=== PATIENT | female | born 1975 | race Two or more races ===

== ENCOUNTER 2017-12-01 08:59 | Emergency (ER) | payer SELFPAY ==
[~2017-12-01] VITALS: Ht 157.5 cm; Wt 61.2 kg
--- NOTE | 2017-12-01 09:40 | NUR ---
PATIENT TO ED DT ABD PAIN, 04/19 W/ DIARRHEA X FRIDAY. PATIENT IS AAO4. APPEARS IN NO APPARENT DISTRESS, RESPIRATION EVEN AND UNLABORED,. SKIN IS WARM TO TOUCH AND NON DIAPHORETIC. AFEBRILE. VSS. PENDING MD EVALUATION
[2017-12-01] MEDS ORDERED: IV NS 0.9% 1,000 ML BAG IV ONE (10:00)
[2017-12-01 10:10] LABS: BASOPHILS # (AUTO) 0.1 /CMM (0.0-0.2); BASOPHILS % (AUTO) 2.8 % (0.0-2.0); EOSINOPHILS # (AUTO) 0.1 /CMM (0.0-0.7); EOSINOPHILS % (AUTO) 1.5 % (0.0-6.0); HEMATOCRIT 37 % (33-45); HEMOGLOBIN 12.4 g/dL (11.5-14.8); LYMPHOCYTES # (AUTO) 1.9 /CMM (0.8-4.8); LYMPHOCYTES % (AUTO) 41.2 % (20.0-44.0); MEAN CORPUSCULAR HEMOGLOBIN 29 PG (26.0-33.0); MEAN CORPUSCULAR HGB CONC 34 g/dl (31.0-36.0); MEAN CORPUSCULAR VOLUME 85 fL (82-100); MONOCYTES # (AUTO) 0.4 /CMM (0.1-1.30); MONOCYTES % (AUTO) 8.4 % (2.0-12.0); NEUTROPHILS # (AUTO) 2.1 /CMM (1.8-8.9); NEUTROPHILS % (AUTO) 46.1 % (43.0-81.0); PLATELET COUNT (AUTO) 333 /CMM (150-450); RDW COEFFICIENT OF VARIATION 15.2 (11.5-15.0); RED BLOOD CELL COUNT(AUTO) 4.31 MIL/uL (4.0-5.2); WHITE BLOOD COUNT (AUTO) 4.6 K/uL (4.3-11.0)
[2017-12-01 10:33] LABS: CALCIUM, SERUM 8.1 mg/dL (8.5-10.1); CREATININE 0.6 mg/dL (0.6-1.3); POTASSIUM 3.9 mmol/L (3.5-5.1)
[2017-12-01 10:39] LABS: ALBUMIN 3.2 g/dL (3.4-5.0); BILIRUBIN,TOTAL 0.2 mg/dL (0.2-1.0); TOTAL PROTEIN, SERUM 7.3 g/dL (6.4-8.2)
--- NOTE | 2017-12-01 11:40 | NUR ---
IV removed. Catheter intact and site benign. Pressure and 4x4 applied to site. No bleeding noted.
--- NOTE | 2017-12-01 11:45 | NUR ---
Patient discharged to home in stable condition. Written and verbal after care instructions given. Patient verbalizes understanding of instruction.
[2017-12-01 12:06] VITALS: BP 108/79
== END 2017-12-01 12:08 | disposition home or self-care (01) ==
LOC: ER 09:01
DX: R10.84 Generalized abdominal pain (principal); R19.7 Diarrhea, unspecified
CPT/HCPCS: 36415; 80048; 80076; 83690; 85025; 96360; 99284; A4606; J7030; Z7610

== ENCOUNTER 2018-05-05 17:12 | Emergency (ER) | payer MEDICAID ==
[~2018-05-05] VITALS: Ht 170.2 cm; Wt 83.9 kg
[2018-05-05 17:16] VITALS: BP 100/63
== END 2018-05-05 17:58 | disposition home or self-care (01) ==
LOC: ER 17:20
DX: R21 Rash and other nonspecific skin eruption (principal)
CPT/HCPCS: 99283; A4606; Z7610

== ENCOUNTER 2018-11-30 08:44 | Emergency (ER) | payer MEDICAID ==
[~2018-11-30] VITALS: Ht 160 cm; Wt 82.1 kg
[2018-11-30 08:52] VITALS: BP 117/80
--- NOTE | 2018-11-30 09:03 | NUR ---
Patient discharged to home in stable condition. Written and verbal after care instructions given. Patient verbalizes understanding of instruction.
== END 2018-11-30 09:03 | disposition home or self-care (01) ==
LOC: ER 08:45
DX: J06.9 Acute upper respiratory infection, unspecified (principal); F10.10 Alcohol abuse, uncomplicated; Y90.9 Presence of alcohol in blood, level not specified; Z98.890 Other specified postprocedural states
CPT/HCPCS: Z7502

== ENCOUNTER 2019-01-17 11:32 | Emergency (ER) | payer MEDICAID ==
[~2019-01-17] VITALS: Ht 157.5 cm; Wt 77.1 kg
--- NOTE | 2019-01-17 11:40 | NUR ---
PT BIB SELF C/O URI SYMPTOMS, PT IS AAOX4 GERMAN SPEAKING ONLY, NOT IN RESPIRATORY DISTRESS, V/S STABLE, KEPT RESTED AND COMFORTABLE.
--- NOTE | 2019-01-17 12:15 | NUR ---
SEEN AND EXAMINED BY DR. JIMENEZ.
[2019-01-17] MEDS ORDERED: IPRATROPIUM NEB FS 0.5 MG/2.5 ML AMPUL.NEB NEB ONE (12:30)
[2019-01-17] MEDS ORDERED: ALBUTEROL FS 2.5 MG/3 ML VIAL.NEB NEB ONE (12:30)
[2019-01-17] MEDS ORDERED: GUAIFENESIN/D-METHORPHAN HB 5 ML UDC PO ONE (12:30)
--- NOTE | 2019-01-17 12:30 | NUR ---
RAPID INFLUENZA OBTAINED AND SENT TO LAB.
[2019-01-17] MEDS ORDERED: IPRATROPIUM NEB FS 0.5 MG/2.5 ML AMPUL.NEB ONE (12:45)
[2019-01-17] MEDS ORDERED: ALBUTEROL FS 2.5 MG/3 ML VIAL.NEB ONE (12:45)
--- NOTE | 2019-01-17 12:45 | NUR ---
RT AT BEDSIDE FOR BREATHING TREATMENT.
[2019-01-17] MEDS ORDERED: GUAIFENESIN/CODEINE 10 ML UDC ONE (12:52)
--- NOTE | 2019-01-17 13:05 | NUR ---
TITLE ATTORNEY AT BEDSIDE FOR XRAY.
--- NOTE | 2019-01-17 13:05 | NUR ---
Manjit reyes in [facility] - 01/17/19 at 1305 by KIT ICHTHYOLOGY TEACHER AT [facility] FOR EVAL.
[2019-01-17 13:48] VITALS: BP 118/71
--- NOTE | 2019-01-17 13:49 | NUR ---
Patient discharged to home in stable condition. Written and verbal after care instructions given. Patient verbalizes understanding of instruction.
== END 2019-01-17 13:50 | disposition home or self-care (01) ==
LOC: ER 11:35
DX: J20.9 Acute bronchitis, unspecified (principal); J06.9 Acute upper respiratory infection, unspecified; F10.10 Alcohol abuse, uncomplicated; Y90.9 Presence of alcohol in blood, level not specified; Z98.890 Other specified postprocedural states
CPT/HCPCS: 71045-TC; 87400

== ENCOUNTER 2019-06-02 09:11 | Emergency (ER) | payer MEDICAID ==
[~2019-06-02] VITALS: Ht 157.5 cm; Wt 81.7 kg
[2019-06-02 09:18] VITALS: BP 118/79
--- NOTE | 2019-06-02 09:18 | NUR ---
PT BIB SELF C/O "headache with dizziness started yesterday around 12 noon", -N/V PT IS AAOX4, NOT IN RESPIRATORY DISTRESS, V/S STABLE, KEPT RESTED AND COMFORTABLE, WILL CONTINUE TO MONITOR.
--- NOTE | 2019-06-02 09:53 | NUR ---
Patient discharged to home in stable condition. Written and verbal after care instructions given. Patient verbalizes understanding of instruction.
== END 2019-06-02 09:57 | disposition home or self-care (01) ==
LOC: ER 09:11
DX: G44.209 Tension-type headache, unspecified, not intractable (principal); F10.10 Alcohol abuse, uncomplicated; Y90.9 Presence of alcohol in blood, level not specified; Z98.890 Other specified postprocedural states

== ENCOUNTER 2019-09-01 15:52 | Emergency (ER) | payer MEDICAID ==
[~2019-09-01] VITALS: Ht 160 cm; Wt 82.6 kg
[2019-09-01] MEDS ORDERED: DEXAMETHASONE SOD PHOSPHATE 4 MG/ML VIAL IM ONE (16:30)
[2019-09-01] MEDS ORDERED: KETOROLAC TROMETHAMINE INJ 60 MG/2 ML VIAL IM ONE ×2 (16:30→16:33)
[2019-09-01] MEDS ORDERED: KETOROLAC TROMETHAMINE INJ 30 MG/ML VIAL ONE (16:32)
[2019-09-01] MEDS ORDERED: DEXAMETHASONE SOD PHOSPHATE 4 MG/ML VIAL ONE (16:36)
--- NOTE | 2019-09-01 16:46 | NUR ---
PATIENT AWAKE ALERT MADE AWARE PLAN OF CARE HER DAUGHTER @ BEDSIDE NON DISTRESS
--- NOTE | 2019-09-01 17:20 | NUR ---
Patient discharged to home in stable condition. Written and verbal after care instructions given. Patient verbalizes understanding of instruction.
== END 2019-09-01 17:20 | disposition home or self-care (01) ==
LOC: ER 15:55
DX: L71.9 Rosacea, unspecified (principal); M54.30 Sciatica, unspecified side; F10.10 Alcohol abuse, uncomplicated; Y90.9 Presence of alcohol in blood, level not specified; Z98.890 Other specified postprocedural states
CPT/HCPCS: 96372 ×2; 99283; J1100; J1885

== ENCOUNTER 2021-01-07 14:02 | Emergency (ER) | payer MEDICAID ==
[~2021-01-07] VITALS: Ht 160 cm; Wt 86.2 kg
[2021-01-07 14:15] VITALS: BP 137/84
[2021-01-07] MEDS ORDERED: AZIT250T PO (15:07)
[2021-01-07] MEDS ORDERED: GUAI-671 PO (15:07)
--- NOTE | 2021-01-07 15:19 | NUR ---
Patient discharged to home in stable condition. Written and verbal after care instructions given. Patient verbalizes understanding of instruction. Pt ambulatory with a steady gait
== END 2021-01-07 15:20 | disposition home or self-care (01) ==
LOC: ER 14:04
DX: J40 Bronchitis, not specified as acute or chronic (principal); F10.10 Alcohol abuse, uncomplicated; Y90.9 Presence of alcohol in blood, level not specified; Z98.890 Other specified postprocedural states; Z79.899 Other long term (current) drug therapy
CPT/HCPCS: 71045-TC

== ENCOUNTER 2021-09-21 06:15 | Emergency (ER) | payer MEDICAID ==
[~2021-09-21] VITALS: Ht 170.2 cm; Wt 95.3 kg
[~2021-09-21 06:15] MED LIST: AZIT250T PO; GUAI-671 PO
--- NOTE | 2021-09-21 06:56 | NUR ---
COVID SWABS, FLU, COLLECTED AND SENT TO LAB
[2021-09-21] MEDS ORDERED: AZIT250T13 PO (08:37)
--- NOTE | 2021-09-21 08:54 | NUR ---
VITAL SIGNS WITHIN NORMAL LIMITS. PT IS A&OX4 AND STABLE. PT WAS GIVEN AND UNDERSTOOD DISCHARGE INSTRUCTIONS AND PRESCRIPTION.
[2021-09-21 08:55] VITALS: BP 125/84
== END 2021-09-21 08:56 | disposition home or self-care (01) ==
LOC: ER 06:16
DX: J40 Bronchitis, not specified as acute or chronic (principal); Z20.822 Contact with and (suspected) exposure to COVID-19
CPT/HCPCS: 71045; 87426; 87804; 99284; C9803; U0003

== ENCOUNTER 2021-10-14 12:25 | Emergency (ER) | payer MEDICAID ==
[~2021-10-14] VITALS: Ht 170.2 cm; Wt 95.3 kg
[~2021-10-14 12:25] MED LIST changes: +AZIT250T13 PO
[2021-10-14 13:15] VITALS: BP 116/78
--- NOTE | 2021-10-14 13:33 | NUR ---
BIBS FOR COUGH AND UPPER BACK PAIN 5/10 X 2 DAYS. WILL CONTINUE TO MONITOR THE PATIENT.
--- NOTE | 2021-10-14 14:43 | NUR ---
X-RAY TECH AT THE BEDSIDE
[2021-10-14] MEDS ORDERED: ALBU18HF2 INH (15:43)
[2021-10-14] MEDS ORDERED: BENZ-13 PO ×2 (15:45→15:47)
--- NOTE | 2021-10-14 15:50 | NUR ---
Patient discharged to home in stable condition. Written and verbal after care instructions given. Patient verbalizes understanding of instruction.
== END 2021-10-14 15:53 | disposition home or self-care (01) ==
LOC: ER 12:29
DX: J40 Bronchitis, not specified as acute or chronic (principal); Z20.822 Contact with and (suspected) exposure to COVID-19; R07.1 Chest pain on breathing
CPT/HCPCS: 71045; 87426; 93005; 99285; C9803

== ENCOUNTER 2022-03-02 07:39 | Emergency (ER) | payer MEDICAID ==
[~2022-03-02] VITALS: Ht 160 cm; Wt 94.8 kg
[~2022-03-02 07:39] MED LIST changes: +ALBU18HF2 INH; +BENZ-13 PO
[2022-03-02 07:40] VITALS: BP 141/96
--- NOTE | 2022-03-02 08:13 | NUR ---
SEEN AND EXAMINED BY .
[2022-03-02] MEDS ORDERED: DIPH25CA83 PO (08:37)
[2022-03-02] MEDS ORDERED: PRED20TA PO (08:37)
[2022-03-02] MEDS ORDERED: FAMO-131 PO (08:37)
--- NOTE | 2022-03-02 09:08 | NUR ---
Patient discharged to home in stable condition. Written and verbal after care instructions given. Patient verbalizes understanding of instruction.
== END 2022-03-02 09:08 | disposition home or self-care (01) ==
LOC: ER 07:41
DX: L25.8 Unspecified contact dermatitis due to other agents (principal); T36.1X5A Adverse effect of cephalosporins and other beta-lactam antibiotics, initial encounter; Z98.82 Breast implant status; Z79.899 Other long term (current) drug therapy; Y92.89 Other specified places as the place of occurrence of the external cause

== ENCOUNTER 2022-03-04 02:48 | Emergency (ER) | payer MEDICAID ==
[~2022-03-04] VITALS: Ht 160 cm; Wt 94.8 kg
[~2022-03-04 02:48] MED LIST changes: +DIPH25CA83 PO; +FAMO-131 PO; +PRED20TA PO
--- NOTE | 2022-03-04 03:15 | NUR ---
BIBS FOR C/O GENERALIZED BODY RASH, HIVES AND ITCHING X YESTERDAY. STARTED KEFLEX ON 03/01. PT AWAKE AND ALERT X4 IN NO RESPIRITORY DISTRESS. PT CHANGED INTO GOWN AND PLACED ON MONITOR AND V/S WNL.
[2022-03-04] MEDS ORDERED: diphenhydrAMINE HCL 50 MG CAPSULE ONE (03:39)
[2022-03-04] MEDS ORDERED: predniSONE 20 MG TABLET ONE (03:39)
[2022-03-04] MEDS ORDERED: CLOB15OI3 TP (03:54)
[2022-03-04] MEDS ORDERED: predniSONE 10 MG TABLET PO ONE (04:00)
[2022-03-04] MEDS ORDERED: diphenhydrAMINE HCL 50 MG CAPSULE PO ONE (04:00)
[2022-03-04] MEDS ORDERED: HYDROCORTISONE 1% CREAM 28.35 GM TUBE TP ONE (05:12)
[2022-03-04] MEDS ORDERED: HYDROCORTISONE 1% CREAM 30 GM TUBE TP ONE (05:30)
[2022-03-04] MEDS ORDERED: EPINEPHRINE (1:1000) 1 MG/ML AMPUL ONE (05:33)
[2022-03-04] MEDS ORDERED: LORAZEPAM INJ 2 MG/ML VIAL ONE (05:52)
[2022-03-04] MEDS ORDERED: LORAZEPAM INJ 2 MG/ML VIAL IM ONE (06:00)
[2022-03-04] MEDS ORDERED: EPINEPHRINE (1:1000) MDV 30 MG/30ML VIAL SUBCUT ONE (06:00)
--- NOTE | 2022-03-04 06:15 | NUR ---
Patient discharged to home in stable condition. Written and verbal after care instructions given. Patient verbalizes understanding of instruction.
[2022-03-04 06:16] VITALS: BP 132/76
== END 2022-03-04 06:16 | disposition home or self-care (01) ==
LOC: ER 02:50
DX: T78.40XA Allergy, unspecified, initial encounter (principal); Z87.39 Personal history of other diseases of the musculoskeletal system and connective tissue; Z98.82 Breast implant status; Z79.899 Other long term (current) drug therapy; X58.XXXA Exposure to other specified factors, initial encounter
CPT/HCPCS: 96372 ×2; 99285; J0171 ×2; J2060; J7512; Q0163

== ENCOUNTER 2022-03-05 02:27 | Inpatient (IN) | payer MEDICAID ==
[~2022-03-05] VITALS: Ht 160 cm; Wt 94.8 kg
[~2022-03-05 02:27] MED LIST changes: +CLOB15OI3 TP
--- NOTE | 2022-03-05 02:52 | NUR ---
BIBSELF C/O GEN BODY RASH ALLERGIC REACTION. SEEN AT [facility] YESTERDAY FOR SAME COMP. RX NOT HELPING. BREAST AUGMENTATION SURGERY DONE [facility] 02/27/22. STARTED ON NORCO & KEFLEX FOR INFECTION PROFYLAXIS. PT ONLY TOOK 1 DOSE OF KEFLEX AND GOT ALLERGIC REACTION. PT A/OX4. TOLERATING R/A WELL AT 99%. CONNECTED PT TO POX AND MONITOR.
[2022-03-05] MEDS ORDERED: methylPREDNISolone SOD SUCC 125 MG/2ML VIAL ONE ×2 (02:59→07:43)
[2022-03-05] MEDS ORDERED: EPINEPHRINE (1:1000) 1 MG/ML AMPUL ONE (02:59)
[2022-03-05] MEDS ORDERED: diphenhydrAMINE HCL 50 MG/ML VIAL ONE ×2 (02:59→07:43)
[2022-03-05] MEDS ORDERED: EPINEPHRINE (1:1000) MDV 30 MG/30ML VIAL SUBCUT ONE (03:00)
[2022-03-05] MEDS ORDERED: FAMOTIDINE/PF INJ 20 MG/2 ML VIAL IV ONE ×2 (03:00)
[2022-03-05] MEDS ORDERED: LORAZEPAM INJ 2 MG/ML VIAL ONE (03:00)
[2022-03-05] MEDS ORDERED: IV NS 0.9% 1,000 ML BAG IV ONE (03:00)
[2022-03-05] MEDS ORDERED: diphenhydrAMINE HCL 50 MG/ML VIAL IV ONE (03:00)
[2022-03-05] MEDS ORDERED: methylPREDNISolone SOD SUCC 125 MG/2ML VIAL IV ONE (03:00)
[2022-03-05] MEDS ORDERED: LORAZEPAM INJ 2 MG/ML VIAL IV ONE (03:00)
--- NOTE | 2022-03-05 03:04 | NUR ---
IV LINE ESTABLISHED, LAC 18G
--- NOTE | 2022-03-05 03:07 | NUR ---
COVID ANTIGEN SWAB COLLECTED
--- NOTE | 2022-03-05 03:07 | NUR ---
BLOOD COLLECTED AND SENT TO LAB
[2022-03-05 03:15] LABS: BASOPHILS # (AUTO) 0.1 K/uL (0.0-0.2); BASOPHILS % (AUTO) 0.9 % (0.0-2.0); EOSINOPHILS % (AUTO) 0.9 % (0.0-6.0); HEMATOCRIT 41 % (33-45); HEMOGLOBIN 13.4 g/dL (11.5-14.8); LYMPHOCYTES # (AUTO) 4.1 K/uL (0.8-4.8); LYMPHOCYTES % (AUTO) 35.4 % (20.0-44.0); MEAN CORPUSCULAR HGB CONC 33 g/dl (31.0-36.0); MEAN CORPUSCULAR VOLUME 88 fL (82-100); MONOCYTES # (AUTO) 0.7 K/uL (0.1-1.30); NEUTROPHILS # (AUTO) 6.5 K/uL (1.8-8.9); NEUTROPHILS % (AUTO) 56.8 % (43.0-81.0); PLATELET COUNT (AUTO) 389 K/uL (150-450); RED BLOOD CELL COUNT(AUTO) 4.68 MIL/uL (4.0-5.2); WHITE BLOOD COUNT (AUTO) 11.5 K/uL (4.3-11.0)
[2022-03-05 03:27] LABS: BILIRUBIN,TOTAL 0.2 mg/dL (0.2-1.0); CALCIUM, SERUM 8.9 mg/dL (8.5-10.1); CREATININE 0.8 mg/dL (0.6-1.3); TOTAL PROTEIN, SERUM 7.6 g/dL (6.4-8.2)
--- NOTE | 2022-03-05 03:49 | NUR ---
URINE COLLECTED AND SENT TO LAB
[2022-03-05 04:04] LABS: BILIRUBIN,DIRECT 0.1 mg/dL (0.0-0.2); POTASSIUM 3.7 mmol/L (3.5-5.1)
--- NOTE | 2022-03-05 04:10 | NUR ---
MRSA SWAB COLLECTED AND SENT TO LAB. PATIENT'S BELONGINGS LIST DONE.
[2022-03-05 04:22] LABS: ALBUMIN 3.4 g/dL (3.4-5.0)
[2022-03-05] MEDS ORDERED: ONDANSETRON HCL/PF 4 MG/2 ML VIAL IVP PRN (06:00)
[2022-03-05] MEDS ORDERED: ACETAMINOPHEN 325 MG TABLET PO PRN (06:00)
[2022-03-05] MEDS ORDERED: methylPREDNISolone SOD SUCC 125 MG/2ML VIAL IV SCH (06:00)
[2022-03-05] MEDS ORDERED: diphenhydrAMINE HCL 50 MG/ML VIAL IV SCH (06:00)
[2022-03-05] MEDS ORDERED: MORPHINE SULFATE INJ 2 MG/ML DISP.SYRIN IV PRN (06:00)
[2022-03-05] MEDS ORDERED: IV NS 0.9% 1,000 ML IV SCH (06:00)
[2022-03-05] MEDS ORDERED: ENOXAPARIN SODIUM 40 MG/0.4 ML DISP.SYRIN SQ SCH (07:05)
[2022-03-05] MEDS ORDERED: ENOXAPARIN SODIUM 40 MG/0.4 ML DISP.SYRIN SQ ONE (07:43)
[2022-03-05] MEDS ORDERED: ALBUTEROL FS 2.5 MG/3 ML VIAL.NEB NEB PRN (08:00)
[2022-03-05] MEDS ORDERED: FAMOTIDINE/PF INJ 20 MG/2 ML VIAL IV SCH (09:00)
[2022-03-05] MEDS ORDERED: CLOBETASOL 0.05% OINT 30 GM TUBE TP SCH (09:00)
[2022-03-05 09:41] VITALS: BP 122/81
--- NOTE | 2022-03-05 09:44 | NUR ---
DR TAVERA APPROVED OF PT TO BE DISCHARGE AT TO CONTINUE AT HOME MEDICATION THAT WERE PREVIOUSLY PRESCRIBED. VERBAL DISCHARGE INSTRUCTIONS WERE GIVEN TO PT. IV REMOVED 4X4 GUAZE APPLIED WITH PRESUURE UNTIL NO BLEEDING WAS NOTED. PT WAS GIVEN LAB RESULTS. PT AWAITING TRASNPORTATION FROM HER DAUGHTER.
== END 2022-03-05 09:44 | disposition home or self-care (01) | DRG 385 ==
LOC: ER 02:27 → TRANSITION 05:43
PROVIDERS: ADMIT Internal Medicine; ATTEND Internal Medicine
DX: L50.0 Allergic urticaria (principal); M54.30 Sciatica, unspecified side; Z20.822 Contact with and (suspected) exposure to COVID-19; Z79.51 Long term (current) use of inhaled steroids; Z79.899 Other long term (current) drug therapy; Z98.82 Breast implant status; Z98.891 History of uterine scar from previous surgery; T36.0X5A Adverse effect of penicillins, initial encounter; T36.1X5A Adverse effect of cephalosporins and other beta-lactam antibiotics, initial encounter; Y92.009 Unspecified place in unspecified non-institutional (private) residence as the place of occurrence of the external cause
CPT/HCPCS: 36415; 80048-TC; 80076-TC; 83605-TC; 84703-TC; 85025-TC; 85652-TC; 86140-TC; 87081-TC; C9803; G0378; J0171; J1200; J1650; J2060; J2930; J3490; J7030

== ENCOUNTER 2022-05-24 06:58 | Emergency (ER) | payer MEDICAID ==
[~2022-05-24] VITALS: Ht 157.5 cm; Wt 95.3 kg
[~2022-05-24 06:58] MED LIST changes: -AZIT250T PO; -AZIT250T13 PO; -BENZ-13 PO
[2022-05-24 07:43] VITALS: BP 137/94
[2022-05-24] MEDS ORDERED: IBUP-1957 PO (08:02)
--- NOTE | 2022-05-24 08:03 | NUR ---
COVID SWAB DONE AND SENT TO LAB
--- NOTE | 2022-05-24 08:12 | NUR ---
Patient discharged to home in stable condition. Written and verbal after care instructions given. Patient verbalizes understanding of instruction.
== END 2022-05-24 08:13 | disposition home or self-care (01) ==
LOC: ER 07:01
DX: U07.1 COVID-19 (principal); R51.9 Headache, unspecified
CPT/HCPCS: 99283; 87426; C9803

== ENCOUNTER 2022-11-26 16:21 | Emergency (ER) | payer MEDICAID ==
[~2022-11-26] VITALS: Ht 165.1 cm; Wt 79.4 kg
[~2022-11-26 16:21] MED LIST changes: +IBUP-1957 PO
[2022-11-26 16:46] VITALS: BP 157/89
[2022-11-26] MEDS ORDERED: AZIT500T PO (17:16)
[2022-11-26] MEDS ORDERED: PSEU120T83 PO (17:16)
== END 2022-11-26 17:27 | disposition home or self-care (01) ==
LOC: ER 16:26
DX: J32.9 Chronic sinusitis, unspecified (principal); Z87.39 Personal history of other diseases of the musculoskeletal system and connective tissue; Z98.86 Personal history of breast implant removal; Z79.899 Other long term (current) drug therapy

== ENCOUNTER 2023-11-05 18:52 | Emergency (ER) | payer MEDICAID ==
[~2023-11-05] VITALS: Ht 160 cm; Wt 95.3 kg
[~2023-11-05 18:52] MED LIST changes: +AZIT500T PO; +PSEU120T83 PO
[2023-11-05 20:38] VITALS: BP 128/98; TEMP 98.2; O2SAT 98
[2023-11-05] MEDS ORDERED: IBUP-1955 PO (20:59)
[2023-11-05] MEDS ORDERED: EUCA1LOZ37 MM (20:59)
[2023-11-05] MEDS ORDERED: FLUT16SP16 BNOSTRILS (20:59)
[2023-11-05] MEDS ORDERED: BENZ-13 PO (20:59)
== END 2023-11-05 23:31 | disposition home or self-care (01) ==
LOC: ER 19:01
DX: J06.9 Acute upper respiratory infection, unspecified (principal); Z98.890 Other specified postprocedural states; Z79.899 Other long term (current) drug therapy

== ENCOUNTER 2023-11-12 11:49 | Emergency (ER) | payer MEDICAID ==
[~2023-11-12] VITALS: Ht 160 cm; Wt 99.8 kg
[~2023-11-12 11:49] MED LIST changes: +BENZ-13 PO; +EUCA1LOZ37 MM; +FLUT16SP16 BNOSTRILS; +IBUP-1955 PO
[2023-11-12] MEDS ORDERED: ACETAMINOPHEN ES 500 MG TABLET ONE (14:29)
[2023-11-12] MEDS ORDERED: CYCLOBENZAPRINE 10 MG TABLET ONE (14:29)
[2023-11-12] MEDS ORDERED: CYCLOBENZAPRINE 10 MG TABLET PO ONE (14:30)
[2023-11-12] MEDS ORDERED: ACETAMINOPHEN ES 500 MG TABLET PO ONE (14:30)
[2023-11-12] MEDS ORDERED: CYCL5TAB PO (15:02)
[2023-11-12 15:13] VITALS: BP 128/78; TEMP 98; O2SAT 100
== END 2023-11-12 15:14 | disposition home or self-care (01) ==
LOC: ER 12:18
DX: M54.50 Low back pain, unspecified (principal); Z79.899 Other long term (current) drug therapy; V89.2XXA Person injured in unspecified motor-vehicle accident, traffic, initial encounter; Y93.89 Activity, other specified; Y92.89 Other specified places as the place of occurrence of the external cause; Y99.8 Other external cause status
CPT/HCPCS: 72131-TC

== ENCOUNTER 2023-12-16 07:15 | Emergency (ER) | payer MEDICAID ==
[~2023-12-16] VITALS: Ht 160 cm; Wt 95.3 kg
[~2023-12-16 07:15] MED LIST changes: +CYCL5TAB PO
[2023-12-16 07:24] VITALS: BP 129/72; TEMP 100.3; O2SAT 95
[2023-12-16] MEDS ORDERED: BENZONATATE 100 MG CAPSULE PO ONE (07:53)
[2023-12-16] MEDS ORDERED: IBUPROFEN 400 MG TABLET ONE (07:54)
[2023-12-16] MEDS ORDERED: PSEUDOEPHEDRINE HCL 30 MG TABLET ONE (07:54)
[2023-12-16] MEDS: IBUPROFEN 400 MG TABLET PO ONE (07:58)
[2023-12-16] MEDS ORDERED: ALBU18HF2 INH (07:59)
[2023-12-16] MEDS ORDERED: BENZ-13 PO (07:59)
[2023-12-16] MEDS: PSEUDOEPHEDRINE HCL 30 MG TABLET PO ONE (07:59)
[2023-12-16] MEDS: BENZONATATE 100 MG CAPSULE PO PRN (08:03)
== END 2023-12-16 08:10 | disposition home or self-care (01) ==
LOC: ER 07:25
DX: J06.9 Acute upper respiratory infection, unspecified (principal); Z79.899 Other long term (current) drug therapy

== ENCOUNTER 2023-12-27 11:45 | Emergency (ER) | payer MEDICAID ==
[~2023-12-27] VITALS: Ht 160 cm; Wt 95.3 kg
[2023-12-27 11:58] VITALS: BP 125/83; TEMP 98.4; O2SAT 98
[2023-12-27] MEDS ORDERED: LEVO750T46 PO (13:09)
[2023-12-27] MEDS ORDERED: KETOROLAC TROMETHAMINE 15 MG/ML VIAL ONE (13:16)
[2023-12-27] MEDS: KETOROLAC TROMETHAMINE 15 MG/ML VIAL IM ONE (13:22)
== END 2023-12-27 13:30 | disposition home or self-care (01) ==
LOC: ER 11:45
DX: J06.9 Acute upper respiratory infection, unspecified (principal); R05.9 Cough, unspecified; Z88.8 Allergy status to other drugs, medicaments and biological substances; Z79.899 Other long term (current) drug therapy; Z20.822 Contact with and (suspected) exposure to COVID-19
CPT/HCPCS: 99283; 87426; 96372; 87804 ×2; 87420; J1885

== ENCOUNTER 2024-02-25 22:00 | Emergency (ER) | payer MEDICAID ==
[~2024-02-25 22:00] MED LIST changes: +LEVO750T46 PO
[2024-02-26] MEDS ORDERED: GUAI-671 PO (10:47)
== END 2024-02-26 00:13 | disposition left against medical advice (07) ==
LOC: ER 23:08
DX: J11.1 Influenza due to unidentified influenza virus with other respiratory manifestations (principal); Z53.21 Procedure and treatment not carried out due to patient leaving prior to being seen by health care provider

== ENCOUNTER 2024-02-26 10:07 | Emergency (ER) | payer MEDICAID ==
[~2024-02-26] VITALS: Ht 157.5 cm; Wt 99.8 kg
[2024-02-26] MEDS ORDERED: GUAI-671 PO (10:47)
[2024-02-26 11:04] VITALS: BP 133/84; TEMP 209.5; O2SAT 95
== END 2024-02-26 11:05 | disposition home or self-care (01) ==
LOC: ER 10:18
DX: J20.9 Acute bronchitis, unspecified (principal); M54.30 Sciatica, unspecified side; Z88.8 Allergy status to other drugs, medicaments and biological substances

== ENCOUNTER 2024-09-03 18:01 | Emergency (ER) | payer MEDICAID ==
[~2024-09-03] VITALS: Ht 157.5 cm; Wt 113.4 kg
[2024-09-03 18:36] VITALS: BP 117/68; TEMP 98.3; O2SAT 100
== END 2024-09-03 20:42 | disposition home or self-care (01) ==
LOC: ER 18:05
DX: J06.9 Acute upper respiratory infection, unspecified (principal); K21.9 Gastro-esophageal reflux disease without esophagitis; E78.00 Pure hypercholesterolemia, unspecified; Z79.1 Long term (current) use of non-steroidal anti-inflammatories (NSAID); Z79.52 Long term (current) use of systemic steroids; Z98.890 Other specified postprocedural states; Z20.822 Contact with and (suspected) exposure to COVID-19; Z88.1 Allergy status to other antibiotic agents
CPT/HCPCS: 71045-TC

== ENCOUNTER 2025-07-04 14:54 | Emergency (ER) | payer MEDICAID ==
[~2025-07-04] VITALS: Ht 157.5 cm; Wt 98.5 kg
[2025-07-04 15:55] LABS: PLATELET COUNT (AUTO) 250 K/uL (150-450); RED BLOOD CELL COUNT(AUTO) 4.57 MIL/uL (4.0-5.2); RED CELL DISTRIBUTION WIDTH 13.7 % (11.5-15.0); WHITE BLOOD COUNT (AUTO) 7.8 K/uL (4.3-11.0)
[2025-07-04 16:02] LABS: CALCIUM, SERUM 9.1 mg/dL (8.5-10.1); CREATININE 0.7 mg/dL (0.6-1.3); SODIUM SERUM 143.0 mmol/L (136-145); UREA NITROGEN, BLOOD 18.0 mg/dL (7-18)
[2025-07-04] MEDS ORDERED: PROCHLORPERAZINE EDISYLATE 10 MG/2 ML VIAL ONE (16:05)
[2025-07-04] MEDS ORDERED: KETOROLAC TROMETHAMINE INJ 30 MG/ML VIAL ONE (16:05)
[2025-07-04 16:09] LABS: ASPARTATE AMINOTRANSFERASE 17.0 U/L (15-37); TOTAL PROTEIN, SERUM 7.5 g/dL (6.4-8.2)
[2025-07-04] MEDS: PROCHLORPERAZINE EDISYLATE 10 MG/2 ML VIAL IM/IV ONE (16:22)
[2025-07-04] MEDS: KETOROLAC TROMETHAMINE INJ 30 MG/ML VIAL IV ONE (16:23)
[2025-07-04] MEDS: IV NS 0.9% 1,000 ML BAG IV ONE (16:23)
[2025-07-04] MEDS ORDERED: Magnesium 1GM/D5W 100ML PREMIX 100 ML IV ONE (18:05)
[2025-07-04] MEDS ORDERED: ACETAMINOPHEN 325 MG TABLET ONE (18:06)
[2025-07-04] MEDS: ACETAMINOPHEN 325 MG TABLET PO ONE (18:20)
[2025-07-04] MEDS: Magnesium 1GM/D5W 100ML PREMIX 100 ML IV ONE (18:20)
[2025-07-04 19:37] VITALS: BP 131/81; TEMP 98; O2SAT 97
== END 2025-07-04 19:37 | disposition home or self-care (01) ==
LOC: ER 15:02
DX: G44.209 Tension-type headache, unspecified, not intractable (principal); R10.2 Pelvic and perineal pain; Z79.1 Long term (current) use of non-steroidal anti-inflammatories (NSAID); Z79.52 Long term (current) use of systemic steroids; Z88.1 Allergy status to other antibiotic agents; Z79.899 Other long term (current) drug therapy
CPT/HCPCS: 99285; 96365; 96375; 70450; 96361; 85025; 80048; 80076; 36415; 84702; J1885; J0780; J1200; J7030; A4223; J3475